=== PATIENT | female | born 1930 | race Two or more races ===

== ENCOUNTER 2021-02-11 11:55 | Inpatient (IN) | payer OTHER ==
[~2021-02-11] VITALS: Ht 152.4 cm; Wt 107.5 kg
[2021-02-11 13:14] LABS: Basophils # (auto) 0 10 ^3/uL (0-0.2); Basophils % (auto) 0.3 % (0.0-2.0); Eosinophils # (auto) 0.7 10 ^3/uL (0-0.8); Eosinophils % (auto) 6.8 % (0.0-7.0); Hematocrit 34.1 % (36.0-46.0); Hemoglobin 11.3 g/dL (12.2-16.2); Lymphocytes # (auto) 1.3 10 ^3/uL (0.4-5.4); Lymphocytes % (auto) 12.2 % (10.0-50.0); Mean Corpuscular Hemoglobin 29.6 pg (28.0-32.0); Mean Corpuscular Hgb Conc. 33.2 g/dL (32.0-36.0); Mean Corpuscular Volume 89.2 fL (80.0-100.0); Monocytes % (auto) 9.1 % (0.0-12.0); Neutrophils # (auto) 7.7 10 ^3/uL (1.6-8.6); Neutrophils % (auto) 71.6 % (37.0-80.0); Red Blood Cells 3.83 10^6/uL (4.0-5.20); Red Cell Distribution Width 15.5 % (11.8-14.3); White Blood Cell 10.8 10^3/uL (4.4-10.8)
[2021-02-11 13:29] LABS: Albumin 3.1 g/dL (3.4-5.0); Potassium 4.6 mmol/L (3.5-5.1)
[2021-02-11 13:32] LABS: BUN/Creatinine Ratio 20.5; Bilirubin, Total 0.5 mg/dL (0.2-1.0); Total Protein 6.9 g/dL (6.4-8.2)
[2021-02-11] MEDS ORDERED: MORPHINE SULFATE 4 MG/ML SYR/VIAL IV ONE (16:15)
[2021-02-11] MEDS ORDERED: ONDANSETRON HCL 4 MG/2 ML VIAL IV ONE (16:15)
[2021-02-11] MEDS ORDERED: MORPHINE SULF INJ 2 MG/ML SYRINGE 1ML IV PRN (19:45)
[2021-02-11] MEDS ORDERED: DEXTROSE (50%) 50ML SYRG IV PRN (19:45)
[2021-02-11] MEDS ORDERED: NITROGLYCERIN 0.4 MG SL TAB SL PRN (19:45)
[2021-02-11] MEDS ORDERED: ACETAMINOPHEN 500 MG TAB PO PRN (19:45)
[2021-02-11] MEDS: ONDANSETRON HCL 4 MG/2 ML VIAL IV PRN (20:16)
[2021-02-11] MEDS: MORPHINE SULF INJ 2 MG/ML SYRINGE 1ML IV PRN (20:16)
[2021-02-11] MEDS: ACCU-CHEK COMFORT CURVE STRIP VI SCH (21:45)
[2021-02-11] MEDS: InsuLIN REG 1unit/0.01ml Soln (100units/ml) SC SCH (21:49)
[2021-02-11 23:14] VITALS: BP 149/66
[2021-02-12] MEDS ORDERED: TEMAZEPAM 15 MG CAP PO ONE (00:45)
[2021-02-12] MEDS ORDERED: TEMAZEPAM 15 MG CAP ONE (01:46)
[2021-02-12] MEDS ORDERED: FURO1TAB33 PO (04:39)
[2021-02-12] MEDS ORDERED: TEMA15CA PO (04:39)
[2021-02-12] MEDS: MORPHINE SULF INJ 2 MG/ML SYRINGE 1ML IV PRN ×3 (04:48→22:41)
[2021-02-12] MEDS: ONDANSETRON HCL 4 MG/2 ML VIAL IV PRN ×3 (04:48→22:41)
[2021-02-12 05:25] VITALS: BP 119/54
[2021-02-12] MEDS: InsuLIN REG 1unit/0.01ml Soln (100units/ml) SC SCH ×4 (06:33→21:05)
[2021-02-12] MEDS: ACCU-CHEK COMFORT CURVE STRIP VI SCH ×4 (06:33→21:16)
[2021-02-12 09:00] VITALS: BP 140/62
[2021-02-12 12:00] VITALS: BP 144/68
[2021-02-12 14:21] LABS: Uric Acid 10.1 mg/dL (2.6-6.0)
[2021-02-12 14:30] LABS: CRP High Sensitivity 14.5 mg/dL (< 0.3)
[2021-02-12 17:22] VITALS: BP 135/74
[2021-02-12] MEDS: FAMOTIDINE 20 MG TAB PO SCH (21:07)
[2021-02-12] MEDS: ENOXAPARIN SOD 40 MG/0.4 ML SYRINGE SC SCH (21:08)
[2021-02-12 22:00] VITALS: BP 134/68
[2021-02-12] MEDS: HYDROcodone-ACET 5/325MG TAB PO PRN (23:56)
[2021-02-13 05:00] VITALS: BP 134/56
[2021-02-13] MEDS: InsuLIN REG 1unit/0.01ml Soln (100units/ml) SC SCH ×4 (06:16→22:04)
[2021-02-13] MEDS: ACCU-CHEK COMFORT CURVE STRIP VI SCH ×4 (06:17→21:57)
[2021-02-13] MEDS: HYDROcodone-ACET 5/325MG TAB PO PRN (09:49)
[2021-02-13] MEDS: FAMOTIDINE 20 MG TAB PO SCH (09:49)
[2021-02-13] MEDS: ENOXAPARIN SOD 40 MG/0.4 ML SYRINGE SC SCH (09:49)
[2021-02-13 13:00] VITALS: BP 130/61
[2021-02-13 16:50] VITALS: BP 139/70
[2021-02-13] MEDS: MORPHINE SULF INJ 2 MG/ML SYRINGE 1ML IV PRN (20:39)
[2021-02-13 22:00] VITALS: BP 148/55
[2021-02-13] MEDS ORDERED: TEMAZEPAM 15 MG CAP PO ONE (22:45)
[2021-02-14] MEDS: HYDROcodone-ACET 5/325MG TAB PO PRN (00:07)
[2021-02-14 05:00] VITALS: BP 129/97
[2021-02-14] MEDS: ACCU-CHEK COMFORT CURVE STRIP VI SCH ×4 (06:06→21:14)
[2021-02-14] MEDS: InsuLIN REG 1unit/0.01ml Soln (100units/ml) SC SCH ×4 (06:11→21:21)
[2021-02-14 08:23] LABS: Basophils # (auto) 0 10 ^3/uL (0-0.2); Basophils % (auto) 0.5 % (0.0-2.0); Eosinophils # (auto) 0.7 10 ^3/uL (0-0.8); Eosinophils % (auto) 7.8 % (0.0-7.0); Hematocrit 33.3 % (36.0-46.0); Hemoglobin 11.4 g/dL (12.2-16.2); Lymphocytes # (auto) 1.5 10 ^3/uL (0.4-5.4); Lymphocytes % (auto) 16.3 % (10.0-50.0); Mean Corpuscular Hgb Conc. 34.1 g/dL (32.0-36.0); Mean Corpuscular Volume 87.9 fL (80.0-100.0); Monocytes # (auto) 0.9 10 ^3/uL (0-1.3); Monocytes % (auto) 9.6 % (0.0-12.0); Neutrophils # (auto) 6.1 10 ^3/uL (1.6-8.6); Neutrophils % (auto) 65.8 % (37.0-80.0); Red Blood Cells 3.78 10^6/uL (4.0-5.20); White Blood Cell 9.2 10^3/uL (4.4-10.8)
[2021-02-14 08:42] LABS: Calcium 9.8 mg/dL (8.5-10.1); Magnesium 1.7 mg/dL (1.6-2.6); Potassium 4.1 mmol/L (3.5-5.1)
[2021-02-14 08:44] LABS: BUN/Creatinine Ratio 22.4
[2021-02-14 08:47] VITALS: BP 144/50
[2021-02-14] MEDS: ENOXAPARIN SOD 40 MG/0.4 ML SYRINGE SC SCH (10:33)
[2021-02-14] MEDS: FAMOTIDINE 20 MG TAB PO SCH (10:33)
[2021-02-14] MEDS ORDERED: HYDR-4798 PO (11:51)
[2021-02-14] MEDS: HYDROcodone-ACET 10/325MG TAB PO PRN ×2 (12:33→21:21)
[2021-02-14 12:44] VITALS: BP 152/59
[2021-02-14 17:29] VITALS: BP 110/86
[2021-02-14 22:00] VITALS: BP 126/66
[2021-02-14] MEDS ORDERED: TEMAZEPAM 15 MG CAP PO SCH (22:00)
[2021-02-15 05:00] VITALS: BP 102/80
[2021-02-15] MEDS: InsuLIN REG 1unit/0.01ml Soln (100units/ml) SC SCH ×2 (06:47→12:48)
[2021-02-15] MEDS: ACCU-CHEK COMFORT CURVE STRIP VI SCH ×2 (06:48→11:30)
[2021-02-15] MEDS: FAMOTIDINE 20 MG TAB PO SCH (08:48)
[2021-02-15] MEDS: HYDROcodone-ACET 10/325MG TAB PO PRN (08:48)
[2021-02-15] MEDS: ENOXAPARIN SOD 40 MG/0.4 ML SYRINGE SC SCH (08:49)
[2021-02-15 09:00] VITALS: BP 132/66
[2021-02-15] MEDS ORDERED: MORPHINE SULF INJ 2 MG/ML SYRINGE 1ML IV PRN (11:15)
[2021-02-15 13:00] VITALS: BP 141/60
[2021-02-15 17:00] VITALS: BP 121/58
== END 2021-02-15 17:15 | DRG 563 ==
LOC: ER 11:55 → EDBD 11:55 → OVERFLOW 19:41 → WEST WING 22:12
PROVIDERS: ADMIT Nurse Practitioner Acute Care; ATTEND Internal Medicine Geriatric Medicine
DX: S82.832A Other fracture of upper and lower end of left fibula, initial encounter for closed fracture (principal); Z68.42 Body mass index [BMI] 45.0-49.9, adult; N18.32 Chronic kidney disease, stage 3b; E78.5 Hyperlipidemia, unspecified; D64.9 Anemia, unspecified; E66.01 Morbid (severe) obesity due to excess calories; Z20.822 Contact with and (suspected) exposure to COVID-19; E11.22 Type 2 diabetes mellitus with diabetic chronic kidney disease; Z96.653 Presence of artificial knee joint, bilateral; W18.39XA Other fall on same level, initial encounter; I12.9 Hypertensive chronic kidney disease with stage 1 through stage 4 chronic kidney disease, or unspecified chronic kidney disease; J44.9 Chronic obstructive pulmonary disease, unspecified; Z79.4 Long term (current) use of insulin; Z83.3 Family history of diabetes mellitus; Z90.710 Acquired absence of both cervix and uterus; Y93.89 Activity, other specified; Y92.89 Other specified places as the place of occurrence of the external cause; Y99.8 Other external cause status; Z90.49 Acquired absence of other specified parts of digestive tract
CPT/HCPCS: 36415; 73502; 73562; 73600; 73610; 80048; 80053; 82962; 83036; 83735; 84550; 85025; 85049; 85652; 86141; 87081; 87426; 93971; 96374; 96375; 96376; 97110; 97116; 97530; G0378; J1815; J2405

== ENCOUNTER 2021-02-19 06:54 | Inpatient (IN) | payer OTHER ==
[~2021-02-19] VITALS: Ht 167.6 cm; Wt 110.2 kg
[~2021-02-19 06:54] MED LIST: FURO1TAB33 PO; HYDR-4798 PO; TEMA15CA PO
[2021-02-19] MEDS ORDERED: NITROGLYCERIN 0.4 MG SL TAB SL ONE (07:15)
[2021-02-19 07:29] LABS: Basophils # (auto) 0.1 10 ^3/uL (0-0.2); Basophils % (auto) 1.1 % (0.0-2.0); Eosinophils # (auto) 0.7 10 ^3/uL (0-0.8); Eosinophils % (auto) 7.3 % (0.0-7.0); Hematocrit 34.1 % (36.0-46.0); Hemoglobin 11.5 g/dL (12.2-16.2); Lymphocytes # (auto) 1.7 10 ^3/uL (0.4-5.4); Mean Corpuscular Hemoglobin 29.6 pg (28.0-32.0); Mean Corpuscular Hgb Conc. 33.8 g/dL (32.0-36.0); Mean Corpuscular Volume 87.6 fL (80.0-100.0); Monocytes # (auto) 0.8 10 ^3/uL (0-1.3); Monocytes % (auto) 8.5 % (0.0-12.0); Neutrophils # (auto) 6.5 10 ^3/uL (1.6-8.6); Neutrophils % (auto) 66.1 % (37.0-80.0); Red Blood Cells 3.89 10^6/uL (4.0-5.20); White Blood Cell 9.8 10^3/uL (4.4-10.8)
[2021-02-19 07:50] LABS: Alanine Aminotransferase 37 U/L (13-56); Albumin 2.9 g/dL (3.4-5.0); Anion Gap 6 (5-15); Aspartate Aminotransferase 28 U/L (15-37); BUN/Creatinine Ratio 17.1; Blood Urea Nitrogen 14 mg/dL (7-18); Calcium 9.8 mg/dL (8.5-10.1); Carbon Dioxide 29 mmol/L (21-32); Chloride 103 mmol/L (98-107); GFR African American 84 mL/min; GFR Non-African American 70 mL/min; Glucose 259 mg/dL (74-106); Potassium 4.4 mmol/L (3.5-5.1); Sodium 138 mmol/L (136-145)
[2021-02-19 07:55] LABS: Alkaline Phosphatase 60 U/L (45-117); Bilirubin, Total 0.4 mg/dL (0.2-1.0); Total Protein 6.7 g/dL (6.4-8.2)
[2021-02-19 08:58] LABS: Urine Bacteria FEW /hpf (None Seen); Urine Blood Negative /uL (Negative); Urine Specific Gravity 1.013 (1.001-1.035); Urine WBC 8 /hpf (0 - 5)
[2021-02-19] MEDS ORDERED: HYDROcodone-ACET 5/325MG TAB PO PRN (13:00)
[2021-02-19] MEDS ORDERED: ACETAMINOPHEN 500 MG TAB PO PRN (13:00)
[2021-02-19] MEDS ORDERED: MORPHINE SULF INJ 2 MG/ML SYRINGE 1ML IV PRN ×2 (13:00→14:00)
[2021-02-19] MEDS ORDERED: ONDANSETRON HCL 4 MG/2 ML VIAL IV PRN (13:00)
[2021-02-19] MEDS ORDERED: DEXTROSE (50%) 50ML SYRG IV PRN (13:00)
[2021-02-19] MEDS ORDERED: hydrALAZINE HCL 20 MG/ML VL IV PRN (13:00)
[2021-02-19] MEDS ORDERED: NITROGLYCERIN 0.4 MG SL TAB SL PRN (14:00)
[2021-02-19] MEDS: ACCU-CHEK COMFORT CURVE STRIP VI SCH ×2 (17:00→22:20)
[2021-02-19] MEDS: InsuLIN REG 1unit/0.01ml Soln (100units/ml) SC SCH ×2 (17:00→22:19)
[2021-02-19] MEDS ORDERED: HYDROcodone-ACET 10/325MG TAB PO SCH (18:00)
[2021-02-19 18:26] VITALS: BP 151/80
[2021-02-19 22:00] VITALS: BP 134/97
[2021-02-19] MEDS: ATORVASTATIN 20 MG TAB PO SCH (22:20)
[2021-02-19] MEDS: METOPROLOL TARTRATE 25 MG TAB PO SCH (22:21)
[2021-02-19] MEDS: TEMAZEPAM 15 MG CAP PO SCH (22:21)
[2021-02-20 05:00] VITALS: BP 120/49
[2021-02-20] MEDS: InsuLIN REG 1unit/0.01ml Soln (100units/ml) SC SCH ×4 (06:58→22:20)
[2021-02-20] MEDS: ACCU-CHEK COMFORT CURVE STRIP VI SCH ×4 (06:58→22:20)
[2021-02-20 09:00] VITALS: BP 159/58
[2021-02-20] MEDS ORDERED: ADENOSINE 85 MG in GIVE UN-DILUTED 0 ML IV STA (09:00)
[2021-02-20] MEDS: LISINOPRIL 10 MG TAB PO SCH (10:00)
[2021-02-20] MEDS: METOPROLOL TARTRATE 25 MG TAB PO SCH ×2 (10:00→22:19)
[2021-02-20] MEDS ORDERED: FAMOTIDINE 20 MG TAB PO SCH (10:00)
[2021-02-20] MEDS: ASPirin-EC 81 mg tab PO SCH (10:00)
[2021-02-20 13:00] VITALS: BP 145/66
[2021-02-20 15:17] VITALS: BP 149/80
[2021-02-20 16:59] VITALS: BP 148/68
[2021-02-20] MEDS: HYDROcodone-ACET 10/325MG TAB PO PRN ×2 (17:00→23:10)
[2021-02-20 22:00] VITALS: BP 145/67
[2021-02-20] MEDS: ATORVASTATIN 20 MG TAB PO SCH (22:19)
[2021-02-20] MEDS: TEMAZEPAM 15 MG CAP PO SCH (23:10)
[2021-02-21] VITALS (7 sets, daily range): BP systolic 107–167; BP diastolic 58–93
[2021-02-21] MEDS: InsuLIN REG 1unit/0.01ml Soln (100units/ml) SC SCH ×4 (06:32→22:14)
[2021-02-21] MEDS: ACCU-CHEK COMFORT CURVE STRIP VI SCH ×4 (06:34→22:13)
[2021-02-21 06:57] LABS: Cholesterol 114 mg/dL (< 200); HDL Cholesterol 36 mg/dL (40-59); LDL Cholesterol 64 mg/dL (< 100); Triglycerides 98 mg/dL (< 150)
[2021-02-21] MEDS: ASPirin-EC 81 mg tab PO SCH (09:57)
[2021-02-21] MEDS: LISINOPRIL 10 MG TAB PO SCH (09:58)
[2021-02-21] MEDS: METOPROLOL TARTRATE 25 MG TAB PO SCH ×2 (09:58→22:17)
[2021-02-21] MEDS: HYDROcodone-ACET 10/325MG TAB PO PRN ×3 (10:04→23:50)
[2021-02-21] MEDS: LACTULOSE 20Gm/30ML SOLN PO SCH (15:56)
[2021-02-21] MEDS: ATORVASTATIN 20 MG TAB PO SCH (22:17)
[2021-02-21] MEDS: TEMAZEPAM 15 MG CAP PO SCH (22:17)
[2021-02-22 05:00] VITALS: BP 139/74
[2021-02-22] MEDS: ACCU-CHEK COMFORT CURVE STRIP VI SCH ×3 (06:26→17:00)
[2021-02-22] MEDS: InsuLIN REG 1unit/0.01ml Soln (100units/ml) SC SCH ×3 (06:32→17:31)
[2021-02-22 08:00] VITALS: BP 120/50
[2021-02-22 09:00] VITALS: BP 120/50
[2021-02-22] MEDS: LACTULOSE 20Gm/30ML SOLN PO SCH (09:27)
[2021-02-22] MEDS: ASPirin-EC 81 mg tab PO SCH (09:28)
[2021-02-22] MEDS: LISINOPRIL 10 MG TAB PO SCH (09:29)
[2021-02-22] MEDS: METOPROLOL TARTRATE 25 MG TAB PO SCH (09:29)
[2021-02-22] MEDS: HYDROcodone-ACET 10/325MG TAB PO PRN ×2 (09:33→16:18)
[2021-02-22 13:00] VITALS: BP 136/76
[2021-02-22 15:28] VITALS: BP 120/50
== END 2021-02-22 19:40 | DRG 313 ==
LOC: EDBD 06:54 → ER 06:54 → TELE 13:48 → TELE-WESTW 17:56
PROVIDERS: ADMIT Nurse Practitioner Acute Care; ATTEND Internal Medicine Geriatric Medicine
PROC: 5A09357 Assistance with Respiratory Ventilation, Less than 24 Consecutive Hours, Continuous Positive Airway Pressure (ICD-10-PCS; principal; 2021-02-21)
DX: R07.89 Other chest pain (principal); E11.9 Type 2 diabetes mellitus without complications; I10 Essential (primary) hypertension; E66.01 Morbid (severe) obesity due to excess calories; E78.5 Hyperlipidemia, unspecified; Z20.822 Contact with and (suspected) exposure to COVID-19; J44.9 Chronic obstructive pulmonary disease, unspecified; Z79.4 Long term (current) use of insulin; Z90.49 Acquired absence of other specified parts of digestive tract; Z90.710 Acquired absence of both cervix and uterus; Z79.899 Other long term (current) drug therapy; Z83.3 Family history of diabetes mellitus; Z68.39 Body mass index [BMI] 39.0-39.9, adult
CPT/HCPCS: 36415; 71045; 78452; 80053; 80061; 81001; 82962; 83880; 84484; 85025; 85049; 85379; 86141; 87081; 87426; 93005; 93017; 93306; 94660; 96372; 96374; 96375; G0378; J0153; J1815

== ENCOUNTER 2021-05-03 08:36 | Inpatient (IN) | payer OTHER ==
[~2021-05-03] VITALS: Ht 157.5 cm; Wt 102.0 kg
[2021-05-03 09:15] LABS: Basophils # (auto) 0.1 10 ^3/uL (0-0.2); Basophils % (auto) 0.5 % (0.0-2.0); Eosinophils # (auto) 0.5 10 ^3/uL (0-0.8); Eosinophils % (auto) 3.8 % (0.0-7.0); Hematocrit 36.9 % (36.0-46.0); Hemoglobin 12.1 g/dL (12.2-16.2); Lymphocytes # (auto) 1.4 10 ^3/uL (0.4-5.4); Lymphocytes % (auto) 9.7 % (10.0-50.0); Mean Corpuscular Hemoglobin 29.2 pg (28.0-32.0); Mean Corpuscular Hgb Conc. 32.8 g/dL (32.0-36.0); Monocytes % (auto) 6.7 % (0.0-12.0); Neutrophils # (auto) 11.3 10 ^3/uL (1.6-8.6); Neutrophils % (auto) 79.3 % (37.0-80.0); Red Blood Cells 4.14 10^6/uL (4.0-5.20); Red Cell Distribution Width 14.3 % (11.8-14.3); White Blood Cell 14.3 10^3/uL (4.4-10.8)
[2021-05-03 09:34] LABS: Albumin 3.1 g/dL (3.4-5.0); Anion Gap 8 (5-15); Blood Urea Nitrogen 25 mg/dL (7-18); Calcium 9.2 mg/dL (8.5-10.1); Carbon Dioxide 32 mmol/L (21-32); Chloride 96 mmol/L (98-107); Glucose 256 mg/dL (74-106); Potassium 3.2 mmol/L (3.5-5.1); Sodium 136 mmol/L (136-145)
[2021-05-03 09:42] LABS: Alanine Aminotransferase 14 U/L (13-56); Alkaline Phosphatase 68 U/L (45-117); Aspartate Aminotransferase 15 U/L (15-37); BUN/Creatinine Ratio 17.5; Bilirubin, Total 0.8 mg/dL (0.2-1.0); GFR African American 44 mL/min; GFR Non-African American 37 mL/min; Total Protein 7.2 g/dL (6.4-8.2)
[2021-05-03 10:22] LABS: Urine Bacteria FEW /hpf (None Seen); Urine Blood Negative /uL (Negative); Urine Hyaline Cast FEW /lpf (0 - 2); Urine WBC 1 /hpf (0 - 5)
[2021-05-03] MEDS ORDERED: levoFLOXacin 500MG 100 ML IV SCH (18:45)
[2021-05-03] MEDS ORDERED: ONDANSETRON HCL 4 MG/2 ML VIAL IV PRN (18:45)
[2021-05-03] MEDS ORDERED: MORPHINE SULFATE INJECTION 2 MG/ML SYRG IV PRN ×2 (18:45)
[2021-05-03] MEDS ORDERED: DEXTROSE (50%) 50ML SYRG IV PRN (18:45)
[2021-05-03] MEDS ORDERED: NITROGLYCERIN 0.4 MG SL TAB SL PRN (18:45)
[2021-05-03] MEDS ORDERED: ACETAMINOPHEN 500 MG TAB PO PRN (18:45)
[2021-05-03] MEDS ORDERED: levoFLOXacin 500MG 100 ML IV ONE (19:00)
[2021-05-03 20:16] VITALS: BP 152/72
[2021-05-03 22:00] VITALS: BP 152/72
[2021-05-03] MEDS: ACCU-CHEK COMFORT CURVE STRIP VI SCH (23:00)
[2021-05-03] MEDS: InsuLIN REG 1unit/0.01ml Soln (100units/ml) SC SCH (23:05)
[2021-05-03] MEDS ORDERED: InsuLIN REG 1unit/0.01ml Soln (100units/ml) ONE (23:18)
[2021-05-04 05:30] VITALS: BP 140/40
[2021-05-04] MEDS: ACCU-CHEK COMFORT CURVE STRIP VI SCH ×4 (06:19→22:45)
[2021-05-04] MEDS ORDERED: InsuLIN REG 1unit/0.01ml Soln (100units/ml) ONE (06:23)
[2021-05-04] MEDS: InsuLIN REG 1unit/0.01ml Soln (100units/ml) SC SCH ×4 (06:24→22:55)
[2021-05-04 09:00] VITALS: BP 142/61
[2021-05-04] MEDS: FUROSEMIDE 20 MG/2 ML VIAL IV SCH (09:43)
[2021-05-04] MEDS: levoFLOXacin 250MG 50 ML IV SCH (09:44)
[2021-05-04] MEDS: ASPirin-EC 81 mg tab PO SCH (09:45)
[2021-05-04] MEDS: POTASSIUM EFFERVESENT TAB 25 MEQ PO SCH (09:45)
[2021-05-04] MEDS: ENOXAPARIN SOD 40 MG/0.4 ML SYRINGE SC SCH (09:45)
[2021-05-04 12:51] VITALS: BP 148/73
[2021-05-04 17:00] VITALS: BP 132/83
[2021-05-04 22:00] VITALS: BP 130/66
[2021-05-05 05:00] VITALS: BP 147/71
[2021-05-05] MEDS: ACCU-CHEK COMFORT CURVE STRIP VI SCH ×4 (06:56→20:56)
[2021-05-05] MEDS: InsuLIN REG 1unit/0.01ml Soln (100units/ml) SC SCH ×4 (06:57→21:06)
[2021-05-05 09:00] VITALS: BP 159/74
[2021-05-05] MEDS: FUROSEMIDE 20 MG/2 ML VIAL IV SCH (09:38)
[2021-05-05] MEDS: levoFLOXacin 250MG 50 ML IV SCH (09:39)
[2021-05-05] MEDS: ASPirin-EC 81 mg tab PO SCH (09:39)
[2021-05-05] MEDS: ENOXAPARIN SOD 40 MG/0.4 ML SYRINGE SC SCH (09:51)
[2021-05-05] MEDS: POTASSIUM EFFERVESENT TAB 25 MEQ PO SCH (09:57)
[2021-05-05 13:00] VITALS: BP 124/74
[2021-05-05] MEDS ORDERED: LISI40TA11 PO (13:14)
[2021-05-05] MEDS ORDERED: INSUINJ2 SC (13:15)
[2021-05-05] MEDS ORDERED: HYDR-4072 PO (13:17)
[2021-05-05] MEDS ORDERED: HYDR25TA4 PO (13:19)
[2021-05-05] MEDS ORDERED: METO25TA5 PO (13:19)
[2021-05-05] MEDS ORDERED: FURO40TA4 PO (13:20)
[2021-05-05] MEDS ORDERED: GABA-339 PO (13:22)
[2021-05-05] MEDS ORDERED: CHOL500021 (13:23)
[2021-05-05] MEDS ORDERED: BACL10TA PO (13:25)
[2021-05-05] MEDS ORDERED: LOVA20TA4 PO (13:27)
[2021-05-05] MEDS ORDERED: CYAN-17 PO (13:28)
[2021-05-05] MEDS ORDERED: ASCO500T11 GT (13:28)
[2021-05-05] MEDS ORDERED: ASPI-543 PO (13:28)
[2021-05-05 17:00] VITALS: BP 142/80
[2021-05-05] MEDS: HYDROcodone-ACET 5/325MG TAB PO PRN (20:56)
[2021-05-05 22:00] VITALS: BP 131/61
[2021-05-05] MEDS: TEMAZEPAM 15 MG CAP PO PRN (22:28)
[2021-05-05 23:36] VITALS: BP 131/61
[2021-05-06 05:00] VITALS: BP 131/82
[2021-05-06] MEDS: ACCU-CHEK COMFORT CURVE STRIP VI SCH ×4 (05:28→21:39)
[2021-05-06] MEDS: InsuLIN REG 1unit/0.01ml Soln (100units/ml) SC SCH ×4 (05:29→21:37)
[2021-05-06 05:51] LABS: Potassium 3.4 mmol/L (3.5-5.1)
[2021-05-06 06:18] LABS: BUN/Creatinine Ratio 21.7; Calcium 9.7 mg/dL (8.5-10.1)
[2021-05-06 08:55] VITALS: BP 147/94
[2021-05-06] MEDS: FUROSEMIDE 20 MG/2 ML VIAL IV SCH (09:13)
[2021-05-06] MEDS: ASPirin-EC 81 mg tab PO SCH (09:13)
[2021-05-06] MEDS: POTASSIUM EFFERVESENT TAB 25 MEQ PO SCH (09:13)
[2021-05-06] MEDS: ENOXAPARIN SOD 40 MG/0.4 ML SYRINGE SC SCH (09:13)
[2021-05-06] MEDS: levoFLOXacin 250MG 50 ML IV SCH (09:13)
[2021-05-06 13:00] VITALS: BP 106/53
[2021-05-06] MEDS ORDERED: POTASSIUM CHL 20 Meq TABLET PO ONE (14:00)
[2021-05-06] MEDS ORDERED: CYANOCOBALAMIN 500 MCG TAB PO ONE (14:00)
[2021-05-06] MEDS: BACLOFEN 10 MG TAB PO SCH ×2 (16:42→21:12)
[2021-05-06] MEDS: HYDROcodone-ACET 5/325MG TAB PO PRN (16:42)
[2021-05-06] MEDS: ASCORBIC ACID 500 MG TAB PO SCH (16:43)
[2021-05-06 17:08] VITALS: BP 150/85
[2021-05-06] MEDS: INSULIN NPH Isophane (HUMAN) 1unit/0.01ml Susp(100units/ml) SC SCH (21:38)
[2021-05-06] MEDS: METOPROLOL TARTRATE 25 MG TAB PO SCH (21:49)
[2021-05-06 22:00] VITALS: BP 116/50
[2021-05-06] MEDS ORDERED: GABAPENTIN 300 MG CAP PO SCH (22:00)
[2021-05-06] MEDS ORDERED: ATORVASTATIN 20 MG TAB PO SCH (22:00)
[2021-05-07] MEDS: TEMAZEPAM 15 MG CAP PO PRN (00:23)
[2021-05-07 05:22] VITALS: BP 107/69
[2021-05-07] MEDS: BACLOFEN 10 MG TAB PO SCH ×2 (05:37→13:51)
[2021-05-07 06:10] LABS: Basophils # (auto) 0.1 10 ^3/uL (0-0.2); Basophils % (auto) 0.5 % (0.0-2.0); Eosinophils # (auto) 0.2 10 ^3/uL (0-0.8); Eosinophils % (auto) 1.6 % (0.0-7.0); Hematocrit 38.9 % (36.0-46.0); Hemoglobin 12.4 g/dL (12.2-16.2); Lymphocytes # (auto) 1.5 10 ^3/uL (0.4-5.4); Mean Corpuscular Hemoglobin 28.7 pg (28.0-32.0); Mean Corpuscular Volume 89.6 fL (80.0-100.0); Monocytes # (auto) 1.3 10 ^3/uL (0-1.3); Monocytes % (auto) 9.3 % (0.0-12.0); Neutrophils # (auto) 10.6 10 ^3/uL (1.6-8.6); Neutrophils % (auto) 77.6 % (37.0-80.0); Red Blood Cells 4.34 10^6/uL (4.0-5.20); White Blood Cell 13.7 10^3/uL (4.4-10.8)
[2021-05-07 06:26] LABS: Anion Gap 11 (5-15); BUN/Creatinine Ratio 26.5; Blood Urea Nitrogen 27 mg/dL (7-18); Calcium 9.2 mg/dL (8.5-10.1); Carbon Dioxide 29 mmol/L (21-32); Chloride 97 mmol/L (98-107); GFR African American 66 mL/min; GFR Non-African American 54 mL/min; Glucose 99 mg/dL (74-106); Magnesium 1.6 mg/dL (1.6-2.6); Potassium 3.6 mmol/L (3.5-5.1); Sodium 137 mmol/L (136-145)
[2021-05-07] MEDS: InsuLIN REG 1unit/0.01ml Soln (100units/ml) SC SCH ×3 (07:00→17:00)
[2021-05-07] MEDS: ACCU-CHEK COMFORT CURVE STRIP VI SCH ×3 (07:00→17:00)
[2021-05-07 09:00] VITALS: BP 128/66
[2021-05-07] MEDS ORDERED: AMOXICILLIN TRIHYDRATE 250 MG CAP PO SCH (09:45)
[2021-05-07] MEDS ORDERED: CYANOCOBALAMIN 500 MCG TAB PO SCH (10:00)
[2021-05-07] MEDS ORDERED: CHOLECALCIFEROL 2000 UNIT PO SCH (10:00)
[2021-05-07] MEDS ORDERED: LISINOPRIL 20 MG TAB PO SCH (10:00)
[2021-05-07] MEDS ORDERED: HCTZ 25 MG TAB PO SCH (10:00)
[2021-05-07] MEDS: ASPirin-EC 81 mg tab PO SCH (10:02)
[2021-05-07] MEDS: levoFLOXacin 250MG 50 ML IV SCH (10:02)
[2021-05-07] MEDS: FUROSEMIDE 20 MG/2 ML VIAL IV SCH (10:02)
[2021-05-07] MEDS: POTASSIUM EFFERVESENT TAB 25 MEQ PO SCH (10:03)
[2021-05-07] MEDS: METOPROLOL TARTRATE 25 MG TAB PO SCH (10:04)
[2021-05-07] MEDS: ENOXAPARIN SOD 40 MG/0.4 ML SYRINGE SC SCH (10:05)
[2021-05-07] MEDS: INSULIN NPH Isophane (HUMAN) 1unit/0.01ml Susp(100units/ml) SC SCH (11:20)
[2021-05-07 13:10] VITALS: BP 105/79
[2021-05-07] MEDS: ASCORBIC ACID 500 MG TAB PO SCH (13:51)
[2021-05-07 14:08] VITALS: BP 133/68
[2021-05-07] MEDS ORDERED: LACTULOSE 20Gm/30ML SOLN PO ONE (14:30)
[2021-05-07] MEDS ORDERED: BACLOFEN 10 MG TAB PO SCH (22:00)
== END 2021-05-07 17:00 | disposition home health service (06) | DRG 291 ==
LOC: ER 08:36 → EDBD 08:36 → TELE-WESTW 18:33 → ER 20:43
PROVIDERS: ADMIT Nurse Practitioner Acute Care; ATTEND Internal Medicine Geriatric Medicine
PROC: 5A09357 Assistance with Respiratory Ventilation, Less than 24 Consecutive Hours, Continuous Positive Airway Pressure (ICD-10-PCS; principal; 2021-05-05)
PROC: 5A09357 Assistance with Respiratory Ventilation, Less than 24 Consecutive Hours, Continuous Positive Airway Pressure (ICD-10-PCS; 2021-05-06)
DX: I13.0 Hypertensive heart and chronic kidney disease with heart failure and stage 1 through stage 4 chronic kidney disease, or unspecified chronic kidney disease (principal); J18.9 Pneumonia, unspecified organism; J96.00 Acute respiratory failure, unspecified whether with hypoxia or hypercapnia; I50.43 Acute on chronic combined systolic (congestive) and diastolic (congestive) heart failure; J44.0 Chronic obstructive pulmonary disease with (acute) lower respiratory infection; N39.0 Urinary tract infection, site not specified; J98.11 Atelectasis; N17.9 Acute kidney failure, unspecified; Z68.41 Body mass index [BMI] 40.0-44.9, adult; E78.5 Hyperlipidemia, unspecified; N18.32 Chronic kidney disease, stage 3b; R53.81 Other malaise; I35.0 Nonrheumatic aortic (valve) stenosis; E11.22 Type 2 diabetes mellitus with diabetic chronic kidney disease; E66.9 Obesity, unspecified; E88.09 Other disorders of plasma-protein metabolism, not elsewhere classified; I48.0 Paroxysmal atrial fibrillation; Z79.899 Other long term (current) drug therapy; Z79.84 Long term (current) use of oral hypoglycemic drugs; Z83.3 Family history of diabetes mellitus; Z90.710 Acquired absence of both cervix and uterus; Z90.49 Acquired absence of other specified parts of digestive tract
CPT/HCPCS: 36415; 71045; 73700; 80048; 80053; 81001; 82962; 83735; 83880; 84484; 85025; 85652; 87040; 87086; 87088; 87186; 87426; 93005; 93970; 94660; 96365; 99291; G0378; J1815; J1956; J2405

== ENCOUNTER 2021-12-28 14:44 | Inpatient (IN) | payer OTHER ==
[~2021-12-28] VITALS: Ht 152.4 cm; Wt 95.4 kg
[~2021-12-28 14:44] MED LIST changes: +ASCO500T11 GT; +ASPI-543 PO; +BACL10TA PO; +CHOL500021; +CYAN-17 PO; +GABA-339 PO; +HYDR-4072 PO; -HYDR-4798 PO; +HYDR25TA4 PO; +INSUINJ2 SC; +LISI40TA11 PO; +LOVA20TA4 PO; +METO25TA5 PO
[2021-12-28 15:22] LABS: Basophils # (auto) 0.1 10 ^3/uL (0-0.2); Eosinophils # (auto) 0.3 10 ^3/uL (0-0.8); Eosinophils % (auto) 1.9 % (0.0-7.0); Hematocrit 29.4 % (36.0-46.0); Hemoglobin 9.5 g/dL (12.2-16.2); Lymphocytes % (auto) 23.1 % (10.0-50.0); Mean Corpuscular Hemoglobin 28.1 pg (28.0-32.0); Mean Corpuscular Hgb Conc. 32.5 g/dL (32.0-36.0); Mean Corpuscular Volume 86.6 fL (80.0-100.0); Monocytes # (auto) 0.9 10 ^3/uL (0-1.3); Monocytes % (auto) 7.1 % (0.0-12.0); Neutrophils # (auto) 8.8 10 ^3/uL (1.6-8.6); Neutrophils % (auto) 66.9 % (37.0-80.0); Nucleated Red Blood Cells % 0.1 %; Red Blood Cells 3.39 10^6/uL (4.0-5.20); Red Cell Distribution Width 17.4 % (11.8-14.3); White Blood Cell 13.2 10^3/uL (4.4-10.8)
[2021-12-28] MEDS ORDERED: NOREPINEPHRINE 8 MG/250ML KIT 250 ML IV SCH (15:30)
[2021-12-28 15:44] LABS: INR 1.13 (0.9-1.15)
[2021-12-28 15:46] LABS: Albumin 2.6 g/dL (3.4-5.0); BUN/Creatinine Ratio 12.7; Calcium 8.8 mg/dL (8.5-10.1); Magnesium 1.6 mg/dL (1.6-2.6); Potassium 4.5 mmol/L (3.5-5.1)
[2021-12-28 15:50] LABS: Bilirubin, Total 0.4 mg/dL (0.2-1.0); Total Protein 5.9 g/dL (6.4-8.2)
[2021-12-28] MEDS ORDERED: SODIUM CHLORIDE 0.9% 1,000 ML IV ONE (16:30)
[2021-12-28] MEDS ORDERED: FUROSEMIDE 40 MG/4 ML VIAL IV ONE (17:15)
[2021-12-28 17:32] LABS: Urine Amorphous Crystal FEW /hpf (None Seen); Urine Bacteria FEW /hpf (None Seen); Urine Blood TRACE /uL (Negative); Urine Hyaline Cast MANY /lpf (0 - 2); Urine Mucus FEW (None Seen); Urine Specific Gravity 1.017 (1.001-1.035); Urine WBC 165 /hpf (0 - 5); Urine WBC Clumps PRESENT /hpf (None Seen)
[2021-12-28] MEDS ORDERED: cefTRIAXone 1GM/50ML D5W 50 ML IV ONE (18:00)
[2021-12-28] MEDS ORDERED: PIPERACILLIN-TAZOB 3.375GM 100 ML IV ONE (18:00)
[2021-12-28] MEDS ORDERED: NITROGLYCERIN 0.4 MG SL TAB SL PRN (18:15)
[2021-12-28] MEDS ORDERED: MORPHINE SULFATE INJ 2 MG/ml SYRG IV PRN (18:15)
[2021-12-28] MEDS: NOREPINEPHRINE 8 MG/250ML KIT 250 ML IV SCH ×2 (21:15→23:50)
[2021-12-28] MEDS ORDERED: MORPHINE SULFATE 4 MG/ML SYR/VIAL IV PRN (21:15)
[2021-12-28] MEDS: ACETAMINOPHEN 650 MG RECT SUPP PR PRN (21:31)
[2021-12-28] MEDS ORDERED: CEFEPIME 2 GM in SODIUM CHL 0.9% 50 ML IV SCH (22:00)
[2021-12-28 23:50] VITALS: BP 75/32
[2021-12-28 23:54] VITALS: BP 75/32
[2021-12-29] VITALS (83 sets, daily range): BP systolic 71–174; BP diastolic 16–104
[2021-12-29 01:05] LABS: Magnesium 1.6 mg/dL (1.6-2.6); Phosphorus 5.9 mg/dL (2.5-4.90)
[2021-12-29 01:15] LABS: INR 1.16 (0.9-1.15); Partial Thromboplastin Time 26.7 sec (23.6-33.0)
[2021-12-29 04:19] LABS: Basophils # (auto) 0.1 10 ^3/uL (0-0.2); Basophils % (auto) 0.4 % (0.0-2.0); Eosinophils # (auto) 0 10 ^3/uL (0-0.8); Eosinophils % (auto) 0.1 % (0.0-7.0); Hematocrit 27.8 % (36.0-46.0); Hemoglobin 9.1 g/dL (12.2-16.2); Lymphocytes % (auto) 16.3 % (10.0-50.0); Mean Corpuscular Hemoglobin 28.3 pg (28.0-32.0); Mean Corpuscular Hgb Conc. 32.5 g/dL (32.0-36.0); Mean Corpuscular Volume 86.9 fL (80.0-100.0); Monocytes # (auto) 1.8 10 ^3/uL (0-1.3); Monocytes % (auto) 9.6 % (0.0-12.0); Neutrophils # (auto) 13.6 10 ^3/uL (1.6-8.6); Neutrophils % (auto) 73.6 % (37.0-80.0); Red Cell Distribution Width 17.3 % (11.8-14.3); White Blood Cell 18.5 10^3/uL (4.4-10.8)
[2021-12-29 04:34] LABS: Magnesium 1.5 mg/dL (1.6-2.6); Potassium 4.1 mmol/L (3.5-5.1)
[2021-12-29 04:37] LABS: Albumin 2.5 g/dL (3.4-5.0); BUN/Creatinine Ratio 13.7; Calcium 9.2 mg/dL (8.5-10.1)
[2021-12-29 04:39] LABS: Uric Acid 10.5 mg/dL (2.6-6.0)
[2021-12-29 04:40] LABS: Bilirubin, Total 0.4 mg/dL (0.2-1.0); Phosphorus 5.6 mg/dL (2.5-4.90); Total Protein 6.3 g/dL (6.4-8.2)
[2021-12-29 05:12] LABS: INR 1.17 (0.9-1.15); Partial Thromboplastin Time 32.8 sec (23.6-33.0)
[2021-12-29 06:04] LABS: CRP High Sensitivity 13.9 mg/dL (< 0.3)
[2021-12-29] MEDS ORDERED: hydrALAZINE HCL 20 MG/ML VL IV PRN (14:45)
[2021-12-29] MEDS ORDERED: PANTOPRAZOLE 40 MG/10 ML VIAL INJ IV ONE (14:45)
[2021-12-29] MEDS ORDERED: VANCOMYCIN PER PHARMACY 0 MG IV SCH (14:45)
[2021-12-29] MEDS ORDERED: ONDANSETRON HCL 4 MG/2 ML VIAL IV PRN (14:45)
[2021-12-29] MEDS ORDERED: MORPHINE SULFATE INJ 2 MG/ml SYRG IV PRN (14:45)
[2021-12-29] MEDS ORDERED: DOCUSATE SOD 100 MG CAP PO PRN (14:45)
[2021-12-29 15:21] LABS: Amphetamine Screen, Urine NEGATIVE (NEGATIVE); Barbiturate Scree,Urine NEGATIVE (NEGATIVE); Benzodiazephine Screen, Urine POSITIVE (NEGATIVE); Cannabinoid Screen, Urine NEGATIVE (NEGATIVE); Cocaine Screen, Urine NEGATIVE (NEGATIVE); Opiate Scree,Urine POSITIVE (NEGATIVE); Phencyclidine Screen, Urine NEGATIVE (NEGATIVE); Protein, Urine 120.1 mg/dL (0.0-11.9)
[2021-12-29] MEDS ORDERED: VANCOMYCIN 1GM/250ML 250 ML IV ONE (15:45)
[2021-12-29] MEDS: SILDENAFIL CITRATE 20 MG TAB PO SCH (16:11)
[2021-12-29] MEDS: ENOXAPARIN SOD 100 MG/1 ML SYRINGE SC SCH (16:49)
[2021-12-29] MEDS: FUROSEMIDE 20 MG/2 ML VIAL IV SCH (18:08)
[2021-12-29] MEDS ORDERED: MEROPENEM 1GM IVPB 100 ML IV ONE (21:46)
[2021-12-29] MEDS ORDERED: ISOSORBIDE MONONITRATE 20 MG TAB PO SCH (22:00)
[2021-12-29] MEDS: MEROPENEM 500MG IVPB 50 ML IV SCH (22:01)
[2021-12-29] MEDS: ATORVASTATIN 20 MG TAB PO SCH (22:02)
[2021-12-29] MEDS: LORazepam 2MG/ML-1ML VIAL IV PRN (22:10)
[2021-12-29] MEDS: NOREPINEPHRINE 8 MG/250ML KIT 250 ML IV SCH (23:30)
[2021-12-30] VITALS (96 sets, daily range): BP systolic 69–178; BP diastolic 24–111
[2021-12-30] MEDS: SILDENAFIL CITRATE 20 MG TAB PO SCH ×2 (00:08→10:04)
[2021-12-30 05:05] LABS: Anion Gap 15 (5-15); BUN/Creatinine Ratio 15.7; Blood Urea Nitrogen 26 mg/dL (7-18); Calcium 8.7 mg/dL (8.5-10.1); Carbon Dioxide 24 mmol/L (21-32); Chloride 102 mmol/L (98-107); GFR African American 37 mL/min; GFR Non-African American 31 mL/min; Glucose 115 mg/dL (74-106); Potassium 3.5 mmol/L (3.5-5.1); Sodium 141 mmol/L (136-145)
[2021-12-30 05:08] LABS: Hematocrit 28.2 % (36.0-46.0); Hemoglobin 9.1 g/dL (12.2-16.2); Mean Corpuscular Hgb Conc. 32.3 g/dL (32.0-36.0); Mean Corpuscular Volume 86.7 fL (80.0-100.0); Red Blood Cells 3.25 10^6/uL (4.0-5.20); Red Cell Distribution Width 17.2 % (11.8-14.3); White Blood Cell 11.4 10^3/uL (4.4-10.8)
[2021-12-30 05:16] LABS: Basophils % (manual) 0 (0.0-2.0); Blast Cells 0; Metamyelocytes % 0; Myelocytes % 0; Promyelocytes % 0; Reactive Lymphocytes 0
[2021-12-30] MEDS: FUROSEMIDE 20 MG/2 ML VIAL IV SCH (05:55)
[2021-12-30] MEDS ORDERED: VANCOMYCIN 750mg/250ml 250 ML IV ONE ×2 (09:30→12:00)
[2021-12-30] MEDS ORDERED: NIFEdipine ER 30 MG TAB PO SCH (10:00)
[2021-12-30] MEDS ORDERED: CEFEPIME 2 GM in SODIUM CHL 0.9% 50 ML IV SCH (10:00)
[2021-12-30] MEDS: PANTOPRAZOLE 40 MG/10 ML VIAL INJ IV SCH (10:04)
[2021-12-30] MEDS: ENOXAPARIN SOD 100 MG/1 ML SYRINGE SC SCH (10:04)
[2021-12-30 11:56] LABS: Band Neutrophils % (manual) 4; Eosinophils % (manual) 1 (0-7); Lymphocytes % (manual) 26 (10.0-50.0); Monocytes % (manual) 9 (0-12)
[2021-12-30] MEDS: MEROPENEM 500MG IVPB 50 ML IV SCH ×2 (13:26→22:52)
[2021-12-30] MEDS ORDERED: DEXTROSE (50%) 50ML SYRG IV PRN (14:45)
[2021-12-30] MEDS ORDERED: NITROGLYCERIN 0.4 MG SL TAB SL PRN (15:15)
[2021-12-30] MEDS: InsuLIN REG 1unit/0.01ml Soln (100units/ml) SC SCH ×2 (18:17→23:17)
[2021-12-30] MEDS: ACCU-CHEK COMFORT CURVE STRIP VI SCH ×2 (18:21→23:17)
[2021-12-30] MEDS: NOREPINEPHRINE 8 MG/250ML KIT 250 ML IV SCH (20:59)
[2021-12-30] MEDS: ACETAMINOPHEN 650 MG RECT SUPP PR PRN (22:43)
[2021-12-30] MEDS: ATORVASTATIN 20 MG TAB PO SCH (22:54)
[2021-12-30] MEDS: ISOSORBIDE MONONITRATE 20 MG TAB PO SCH (22:54)
[2021-12-31] VITALS (80 sets, daily range): BP systolic 77–161; BP diastolic 30–131
[2021-12-31] MEDS ORDERED: ALBUTEROL SULF 2.5 MG/0.5ML(0.5%) NEB SOLN ONE (00:45)
[2021-12-31] MEDS: ALBUTEROL SULF 2.5 MG/0.5ML(0.5%) NEB SOLN NEB PRN ×2 (00:55→19:06)
[2021-12-31 04:09] LABS: Hemoglobin 8.2 g/dL (12.2-16.2)
[2021-12-31 04:11] LABS: Hematocrit 23.9 % (36.0-46.0); Mean Corpuscular Hemoglobin 29.3 pg (28.0-32.0); Mean Corpuscular Hgb Conc. 34.3 g/dL (32.0-36.0); Mean Corpuscular Volume 85.5 fL (80.0-100.0); Red Cell Distribution Width 16.9 % (11.8-14.3)
[2021-12-31 04:22] LABS: Basophils % (manual) 0 (0.0-2.0); Blast Cells 0; Metamyelocytes % 0; Promyelocytes % 0; Reactive Lymphocytes 0
[2021-12-31 04:26] LABS: Albumin 2.3 g/dL (3.4-5.0); BUN/Creatinine Ratio 14.8; Calcium 8.5 mg/dL (8.5-10.1); Potassium 3.1 mmol/L (3.5-5.1)
[2021-12-31 04:29] LABS: Bilirubin, Total 0.3 mg/dL (0.2-1.0); Total Protein 5.8 g/dL (6.4-8.2)
[2021-12-31 04:48] LABS: Band Neutrophils % (manual) 6; Eosinophils % (manual) 7 (0-7); Myelocytes % 1
[2021-12-31 04:50] LABS: Lymphocytes % (manual) 11 (10.0-50.0); Monocytes % (manual) 10 (0-12)
[2021-12-31] MEDS ORDERED: POTASSIUM EFFERVESENT TAB 25 MEQ PO ONE (05:30)
[2021-12-31] MEDS: ACCU-CHEK COMFORT CURVE STRIP VI SCH ×4 (05:53→23:36)
[2021-12-31] MEDS: InsuLIN REG 1unit/0.01ml Soln (100units/ml) SC SCH ×4 (05:54→23:37)
[2021-12-31] MEDS: ISOSORBIDE MONONITRATE 20 MG TAB PO SCH (10:00)
[2021-12-31] MEDS: PANTOPRAZOLE 40 MG/10 ML VIAL INJ IV SCH (11:35)
[2021-12-31] MEDS: ENOXAPARIN SOD 100 MG/1 ML SYRINGE SC SCH (11:36)
[2021-12-31] MEDS: FUROSEMIDE 20 MG/2 ML VIAL IV SCH (11:37)
[2021-12-31] MEDS: MEROPENEM 500MG IVPB 50 ML IV SCH ×2 (12:52→21:51)
[2021-12-31] MEDS ORDERED: POTASSIUM CHL 20MEQ/100ML 100 ML IV ONE (13:15)
[2021-12-31] MEDS: ACETAMINOPHEN 325 MG TAB PO PRN (19:40)
[2021-12-31] MEDS: NOREPINEPHRINE 8 MG/250ML KIT 250 ML IV SCH (21:15)
[2021-12-31] MEDS: ATORVASTATIN 20 MG TAB PO SCH (21:50)
[2022-01-01] VITALS (51 sets, daily range): BP systolic 87–141; BP diastolic 31–83
[2022-01-01] MEDS: ALBUTEROL SULF 2.5 MG/0.5ML(0.5%) NEB SOLN NEB PRN ×3 (00:29→12:13)
[2022-01-01] MEDS: HYDROcodone-ACET 5/325MG TAB PO PRN ×2 (01:24→14:25)
[2022-01-01 04:31] LABS: Hematocrit 22.1 % (36.0-46.0); Hemoglobin 7.7 g/dL (12.2-16.2); Red Blood Cells 2.57 10^6/uL (4.0-5.20)
[2022-01-01 04:35] LABS: Mean Corpuscular Hemoglobin 30.1 pg (28.0-32.0); Mean Corpuscular Volume 85.8 fL (80.0-100.0); Red Cell Distribution Width 17.7 % (11.8-14.3); White Blood Cell 5.1 10^3/uL (4.4-10.8)
[2022-01-01 04:52] LABS: Basophils % (manual) 0 (0.0-2.0); Blast Cells 0; Myelocytes % 0; Promyelocytes % 0; Reactive Lymphocytes 0
[2022-01-01 04:54] LABS: BUN/Creatinine Ratio 17.5; Calcium 8.6 mg/dL (8.5-10.1)
[2022-01-01] MEDS: InsuLIN REG 1unit/0.01ml Soln (100units/ml) SC SCH ×3 (05:38→17:23)
[2022-01-01] MEDS: ACCU-CHEK COMFORT CURVE STRIP VI SCH ×3 (05:38→17:23)
[2022-01-01] MEDS: NOREPINEPHRINE 8 MG/250ML KIT 250 ML IV SCH (07:00)
[2022-01-01] MEDS: ENOXAPARIN SOD 100 MG/1 ML SYRINGE SC SCH (09:36)
[2022-01-01] MEDS: FUROSEMIDE 20 MG/2 ML VIAL IV SCH (09:36)
[2022-01-01] MEDS: PANTOPRAZOLE 40 MG/10 ML VIAL INJ IV SCH (09:36)
[2022-01-01] MEDS: MEROPENEM 500MG IVPB 50 ML IV SCH (09:38)
[2022-01-01 10:43] LABS: Band Neutrophils % (manual) 14; Eosinophils % (manual) 2 (0-7); Lymphocytes % (manual) 24 (10.0-50.0); Metamyelocytes % 2; Monocytes % (manual) 6 (0-12)
[2022-01-01] MEDS ORDERED: FLUCONAZOLE 200MG/100ML 100 ML IV ONE (14:30)
[2022-01-01] MEDS: ATORVASTATIN 20 MG TAB PO SCH (21:54)
[2022-01-02] MEDS: MEROPENEM 500MG IVPB 50 ML IV SCH ×2 (01:50→10:00)
[2022-01-02] MEDS: LORazepam 2MG/ML-1ML VIAL IV PRN (01:56)
[2022-01-02] MEDS: ALBUTEROL SULF 2.5 MG/0.5ML(0.5%) NEB SOLN NEB PRN (02:20)
[2022-01-02 05:00] VITALS: BP 142/80
[2022-01-02] MEDS: ACETAMINOPHEN 325 MG TAB PO PRN (05:47)
[2022-01-02] MEDS: InsuLIN REG 1unit/0.01ml Soln (100units/ml) SC SCH ×3 (05:47→12:00)
[2022-01-02] MEDS: ACCU-CHEK COMFORT CURVE STRIP VI SCH ×2 (05:48)
[2022-01-02 07:57] LABS: Hematocrit 24.8 % (36.0-46.0)
[2022-01-02 07:59] LABS: Hemoglobin 8.3 g/dL (12.2-16.2); Mean Corpuscular Hemoglobin 28.8 pg (28.0-32.0); Mean Corpuscular Hgb Conc. 33.5 g/dL (32.0-36.0); Mean Corpuscular Volume 85.9 fL (80.0-100.0); Red Blood Cells 2.88 10^6/uL (4.0-5.20); Red Cell Distribution Width 17.6 % (11.8-14.3)
[2022-01-02 08:14] LABS: Basophils % (manual) 0 (0.0-2.0); Blast Cells 0; Eosinophils % (manual) 0 (0-7); Metamyelocytes % 0; Promyelocytes % 0; Reactive Lymphocytes 0
[2022-01-02 08:15] LABS: BUN/Creatinine Ratio 15.6; Calcium 8.1 mg/dL (8.5-10.1); Potassium 4.6 mmol/L (3.5-5.1)
[2022-01-02 08:33] LABS: Band Neutrophils % (manual) 15; Lymphocytes % (manual) 24 (10.0-50.0); Monocytes % (manual) 5 (0-12); Myelocytes % 1
[2022-01-02 09:00] VITALS: BP 102/42
[2022-01-02] MEDS ORDERED: FLUCONAZOLE 200MG/100ML 100 ML IV SCH (10:00)
[2022-01-02] MEDS: FUROSEMIDE 20 MG/2 ML VIAL IV SCH (11:04)
[2022-01-02] MEDS: PANTOPRAZOLE 40 MG/10 ML VIAL INJ IV SCH (11:05)
[2022-01-02] MEDS: ASPirin 81 mg TAB PO SCH ×2 (11:05→13:40)
[2022-01-02 13:00] VITALS: BP 116/63
== END 2022-01-02 16:00 | disposition hospice, home (50) | DRG 871 ==
LOC: EDBD 14:44 → ER 14:44 → OVERFLOW 19:01 → ICU WEST 23:25 → TELE-EAST 01-01 18:18
PROVIDERS: ADMIT Hospitalist; ATTEND Internal Medicine
PROC: 05HB33Z Insertion of Infusion Device into Right Basilic Vein, Percutaneous Approach (ICD-10-PCS; principal; 2021-12-31)
PROC: B54MZZA Ultrasonography of Right Upper Extremity Veins, Guidance (ICD-10-PCS; 2021-12-31)
DX: A41.9 Sepsis, unspecified organism (principal); E43 Unspecified severe protein-calorie malnutrition; J18.9 Pneumonia, unspecified organism; N17.0 Acute kidney failure with tubular necrosis; R65.21 Severe sepsis with septic shock; I50.43 Acute on chronic combined systolic (congestive) and diastolic (congestive) heart failure; I21.A1 Myocardial infarction type 2; E66.2 Morbid (severe) obesity with alveolar hypoventilation; I13.0 Hypertensive heart and chronic kidney disease with heart failure and stage 1 through stage 4 chronic kidney disease, or unspecified chronic kidney disease; I48.11 Longstanding persistent atrial fibrillation; N12 Tubulo-interstitial nephritis, not specified as acute or chronic; N18.4 Chronic kidney disease, stage 4 (severe); N39.0 Urinary tract infection, site not specified; Z66 Do not resuscitate; Z20.822 Contact with and (suspected) exposure to COVID-19; D63.8 Anemia in other chronic diseases classified elsewhere; E11.22 Type 2 diabetes mellitus with diabetic chronic kidney disease; E78.5 Hyperlipidemia, unspecified; I27.21 Secondary pulmonary arterial hypertension; M19.90 Unspecified osteoarthritis, unspecified site; Z51.5 Encounter for palliative care; Z90.49 Acquired absence of other specified parts of digestive tract; Z90.710 Acquired absence of both cervix and uterus; Z68.38 Body mass index [BMI] 38.0-38.9, adult
CPT/HCPCS: 36415; 36600; 71045; 71250; 80048; 80053; 80061; 80202; 80307; 81001; 82550; 82728; 82805; 82962; 83036; 83605; 83615; 83690; 83735; 83880; 84100; 84156; 84443; 84484; 84550; 85007; 85025; 85027; 85379; 85610; 85652; 85730; 86141; 87040; 87081; 87086; 87088; 93005; 93306; 93970; 94640; 96365; 96367; 96375; 99291; C9113; G0378; J0696; J1450; J2185; J2543; J3480